=== PATIENT | female | born 2000 | race Caucasian/White ===

== ENCOUNTER 2022-08-15 05:33 | Inpatient (IN) ==
[2022-08-15] MEDS ORDERED: Buffered Lidocaine 1% SYRIN 1 ml INTRADERM ONE (06:01)
[2022-08-15] MEDS ORDERED: Lactated Ringers 1000 ml BAG 1,000 ML IV ONE ×2 (06:01→09:42)
[2022-08-15 06:49] LABS: Urine Benzodiazepine Screen None Detected (None Detect); Urine Cannabinoids Screen None Detected (None Detect); Urine Opiates Screen None Detected (None Detect)
[2022-08-15] MEDS ORDERED: Lactated Ringers 1000 ml BAG 1,000 ML IV SCH (07:00)
[2022-08-15] MEDS ORDERED: Lidocaine 2% w/ EPI 1:200,000 MPF 20 ML SDV VIAL ONE (08:51)
[2022-08-15] MEDS ORDERED: OBEPIDURAL (200 ML) 200 ML EPIDURAL ONE (08:51)
[2022-08-15 09:05] LABS: Hematocrit 30 % (35-47); Hemoglobin 9.5 g/dL (12.0-16.0); Mean Corpuscular HGB Conc 32 g/dL (31-36); Mean Corpuscular Hemoglobin 22 pg (27-31); Mean Platelet Volume 9.1 fL (7.4-10.4); Platelet Count 225 10^3/uL (150-450); Red Blood Count 4.39 10^6 /uL (3.70-4.87); Red Cell Distribution Width 20 % (10-15); White Blood Count 10.4 10^3/uL (3.5-10.8)
[2022-08-15] MEDS ORDERED: Sodium Citrate/Citric Acid LIQ 15 ML UDC PO PRN (09:42)
[2022-08-15] MEDS ORDERED: Phenylephrine 40 mcg/mL 10mL (400mcg) SYRINGE IV PUSH PRN ×2 (09:42)
[2022-08-15] MEDS ORDERED: OBEPIDURAL (200 ML) 200 ML EPIDURAL SCH (10:00)
[2022-08-15 10:43] LABS: Urine Appearance Turbid; Urine Bilirubin Negative (Negative); Urine Blood Negative (Negative); Urine Color Yellow; Urine Glucose Negative (Negative); Urine Ketones 2+ (Negative); Urine Nitrite Negative (Negative); Urine Protein 1+(30 mg/dL) (Negative); Urine Specific Gravity 1.023 (1.002-1.030); Urine Urobilinogen Negative (Negative)
[2022-08-15 10:49] LABS: Urine Bacteria Absent (Absent); Urine Red Blood Cell Trace(0-2/hpf) (Absent); Urine Squamous Epithelial Cell Present (Absent); Urine White Blood Cell Trace(0-5/hpf) (Absent)
[2022-08-15 11:32] LABS: ABS Lymphocytes 1.9 10^3/ul (1.0-4.8); ABS Monocytes 0.7 10^3/ul (0-0.8); ABS Neutrophils 7.8 10^3/ul (1.5-7.7); Eosinophil % 0.1 %; Nucleated Red Blood Cells % 0.1
[2022-08-15 11:33] LABS: Anisocytosis 2+; Microcytosis 3+; Polychromasia 1+
[2022-08-15 11:34] LABS: Mean Corpuscular Volume 68 fL (80-97)
[2022-08-15] MEDS: Lactated Ringers 1000 ml BAG 1,000 ML IV SCH ×2 (13:11→16:39)
[2022-08-15 18:41] LABS: Hematocrit 28 % (35-47); Hemoglobin 8.7 g/dL (12.0-16.0); Mean Corpuscular HGB Conc 31 g/dL (31-36); Mean Corpuscular Hemoglobin 21 pg (27-31); Mean Corpuscular Volume 69 fL (80-97); Platelet Count 198 10^3/uL (150-450); Red Blood Count 4.07 10^6 /uL (3.70-4.87); Red Cell Distribution Width 20 % (10-15); White Blood Count 13.5 10^3/uL (3.5-10.8)
[2022-08-15] MEDS: Ampicillin ADVAN 2 GM in NS 0.9% 100 ml BAG 100 ML IVPB SCH (19:16)
[2022-08-15] MEDS: Gentamicin ADULT 225 MG in NS 0.9% 100 ml BAG 100 ML IVPB SCH (19:52)
[2022-08-15] MEDS ORDERED: Azithromycin 500 mg/250 ml NS 500 MG/250 ML BAG IVPB ONE (23:03)
[2022-08-15] MEDS ORDERED: Metoclopramide 5 MG/ML VIAL (10 mg) IV PRN (23:33)
[2022-08-15] MEDS ORDERED: Ondansetron 4 mg VIAL 2 MG/ML 2 ml VIAL IV PRN (23:33)
[2022-08-15] MEDS ORDERED: Acetaminophen IV 1 GM/100ML 1,000 MG/100 ML BAG IV PRN (23:33)
[2022-08-15] MEDS ORDERED: Naloxone 0.4 mg VIAL 0.4 mg/ml 1 ml VIAL IV PUSH PRN (23:33)
[2022-08-15] MEDS ORDERED: Clindamycin 900 MG/D5W BAG 900 MG/50 ML BAG IVPB SCH (23:45)
[2022-08-16] MEDS: Oxytocin in LR 20,000 MILLI.UNIT/1,000 ML BAG IV SCH ×3 (00:18→07:08)
[2022-08-16] MEDS ORDERED: Methylergonovine 0.2 mg AMPULE 1 ml AMP ONE (00:24)
[2022-08-16] MEDS ORDERED: Atropine 1 MG/ML INJ 1 ML VIAL ONE (00:33)
[2022-08-16] MEDS ORDERED: Morphine PF AMP (0.5MG/ML) 5 MG/10 ML AMP ONE (00:33)
[2022-08-16] MEDS ORDERED: Lidocaine 2% w/ EPI 1:200,000 MPF 20 ML SDV VIAL ONE (00:33)
[2022-08-16] MEDS ORDERED: Metoprolol Tartrate 5 mg VIAL 5 ml VIAL (1 mg/ml) ONE (00:33)
[2022-08-16] MEDS ORDERED: Oxytocin 10 UNITS/ML 1 ML VIAL ONE (00:33)
[2022-08-16] MEDS ORDERED: Witch Hazel PAD JAR TOPICAL PRN (01:11)
[2022-08-16] MEDS ORDERED: Methylergonovine 0.2 mg AMPULE 1 ml AMP IM ONE (01:11)
[2022-08-16] MEDS ORDERED: Glycerin ADULT 2.4 gm SUPP PR PRN (01:11)
[2022-08-16] MEDS ORDERED: Dibucaine 1% OINT 28.35 GM TUBE PR PRN (01:11)
[2022-08-16] MEDS ORDERED: Lactated Ringers 1000 ml BAG 1,000 ML IV SCH (02:00)
[2022-08-16] MEDS: Ampicillin ADVAN 2 GM in NS 0.9% 100 ml BAG 100 ML IVPB SCH ×4 (10:59→23:22)
[2022-08-16] MEDS: Clindamycin 900 MG/D5W BAG 900 MG/50 ML BAG IVPB SCH ×2 (12:05→21:25)
[2022-08-16] MEDS: Gentamicin ADULT 225 MG in NS 0.9% 100 ml BAG 100 ML IVPB SCH (19:55)
[2022-08-17] MEDS: Clindamycin 900 MG/D5W BAG 900 MG/50 ML BAG IVPB SCH (04:26)
[2022-08-17] MEDS: Ampicillin ADVAN 2 GM in NS 0.9% 100 ml BAG 100 ML IVPB SCH (05:31)
[2022-08-17 06:52] LABS: Hematocrit 21 % (35-47); Hemoglobin 6.2 g/dL (12.0-16.0); Mean Corpuscular HGB Conc 30 g/dL (31-36); Mean Corpuscular Hemoglobin 21 pg (27-31); Mean Corpuscular Volume 70 fL (80-97); Mean Platelet Volume 9.2 fL (7.4-10.4); Platelet Count 187 10^3/uL (150-450); Red Blood Count 2.97 10^6 /uL (3.70-4.87); Red Cell Distribution Width 20 % (10-15); White Blood Count 17.2 10^3/uL (3.5-10.8)
[2022-08-17 07:40] LABS: ABS Lymphocytes 0.8 10^3/ul (1.0-4.8); ABS Monocytes 0.7 10^3/ul (0-0.8); ABS Neutrophils 15.8 10^3/ul (1.5-7.7); Lymphocyte % 4.4 %; Microcytosis 2+
[2022-08-17 07:41] LABS: Acanthocytes 1+; Anisocytosis 1+; Hypochromasia 2+
[2022-08-17 21:01] LABS: Hematocrit 32 % (35-47); Mean Corpuscular HGB Conc 31 g/dL (31-36); Mean Corpuscular Hemoglobin 23 pg (27-31); Mean Corpuscular Volume 75 fL (80-97); Mean Platelet Volume 9.2 fL (7.4-10.4); Platelet Count 208 10^3/uL (150-450); Red Blood Count 4.31 10^6 /uL (3.70-4.87); Red Cell Distribution Width 23 % (10-15); White Blood Count 18.2 10^3/uL (3.5-10.8)
[2022-08-19 08:28] VITALS: BP 123/56
[2022-08-19] MEDS ORDERED: Tetan/Diph/Pertus SYR(Tdap) 0.5 ML SYR(BOOSTRIX) use SYR contains LATEX IM ONE (10:26)
[2022-08-20] MEDS ORDERED: Influenza vaccine *QUAD* *2022-23* 0.5 ML SYRINGE IM ONE (09:00)
== END 2022-08-19 13:05 | disposition home or self-care (01) | DRG 540 ==
LOC: MCHOBOUT 05:33 → MCHOB 06:08
PROVIDERS: ADMIT Midwife; ATTEND Midwife